=== PATIENT | female | born 1950 | race Caucasian/White ===

== ENCOUNTER 2018-09-03 01:11 | Outpatient (CLI) | payer MEDICARE | END 2018-09-03 23:59 | disposition home or self-care (01) | LOC: DIABETIC 01:11 | PROVIDERS: ATTEND Nurse Practitioner Family | DX: E11.9 Type 2 diabetes mellitus without complications (principal); Z71.3 Dietary counseling and surveillance | CPT/HCPCS: G0108 ==

== ENCOUNTER 2019-02-01 08:53 | Inpatient (IN) | payer MEDICARE ==
[2019-01-25 11:54] LABS: BASOPHILS # (AUTO) 0.1 X10'3 (0-0.2); BASOPHILS % (AUTO) 0.7 % (0-1); EOSINOPHILS # (AUTO) 0.1 X10'3 (0-0.9); LYMPHOCYTES # (AUTO) 1.5 X10'3 (1.1-4.8); LYMPHOCYTES % (AUTO) 16.6 % (21-51); MEAN CORPUSCULAR HEMOGLOBIN 30.7 PG (27.0-31.0); MEAN CORPUSCULAR HGB CONC 33.5 g/dL (33.0-36.5); MEAN CORPUSCULAR VOLUME 91.5 FL (78-98); MEAN PLATELET VOLUME 7.5 FL (7.4-10.4); MONOCYTES # (AUTO) 0.7 X10'3 (0-0.9); MONOCYTES % (AUTO) 8.1 % (2-12); NEUTROPHILS # (AUTO) 6.5 X10'3 (1.8-7.7); NEUTROPHILS % (AUTO) 73.6 % (42-75); PRE OP HEMATOCRIT 44.4 % (35.0-45.0); PRE OP HEMOGLOBIN 14.9 g/dL (12.0-16.0); PRE OP PLATELET COUNT 375 X10'3 (140-440); RED BLOOD COUNT 4.85 X10'6 (4.20-5.60)
[2019-01-25 12:07] LABS: PRE OP PROTIME 9.9 SECONDS (9.0-12.0)
[2019-01-25 12:09] LABS: HEMOGLOBIN A1C 6.6 % (4.5-6.2)
[2019-01-25 12:14] LABS: ALBUMIN 3.5 G/DL (3.4-5.0); ALBUMIN/GLOBULIN RATIO 0.9 (1.1-1.5); ALKALINE PHOSPHATASE 89 IU/L (46-116); BLOOD UREA NITROGEN 13 MG/DL (7-18); BUN/CREATININE RATIO 16.7 (6.6-38.0); CALCIUM 8.9 MG/DL (8.5-10.1); CHLORIDE 97 MMOL/L (99-107); CREATININE 0.78 MG/DL (0.40-0.90); PRE OP ALT 46 U/L (30-65); PRE OP ANION GAP 9 (8-16); PRE OP AST 26 U/L (10-37); PRE OP BILIRUB, TOTAL 0.4 MG/DL (0.0-1.0); PRE OP GLUCOSE 199 MG/DL (70-104); PRE OP SODIUM 136 MMOL/L (135-145); TOTAL CARBON DIOXIDE 30.4 MMOL/L (24-32); TOTAL PROTEIN 7.5 G/DL (6.4-8.2); eGFR 73 ML/MIN
[2019-01-25 12:16] LABS: PRE OP POTASSIUM 3.1 MMOL/L (3.4-5.1)
[2019-02-01] VITALS (20 sets, daily range): BP systolic 118–153; BP diastolic 47–103
[~2019-02-01] VITALS: Ht 167.6 cm; Wt 67.1 kg
[~2019-02-01 08:53] MED LIST: AMIT10TA6 PO; EMPA10TA PO; ESTR2TAB PO; ESTRADIOL PO SCH; FLUO20CA39 PO; HYDR50TA3 PO; HYDROmorphone 1 mg/ml syringe IV PRN; MESSAGE TO PHARMACY PO ONE; PROG200C11 PO; THY60T PO; acetaminophen 325mg tablet PO PRN; bisacodyl 10mg suppository rectal RC PRN; dextrose 50%-water 50ml dispensing syringe IV PRN; dextrose ORAL solution 15 GM/59 ML bottle PO PRN; diphenhydrAMINE 25mg capsule PO PRN; glucagon, human recombinant 1mg kit SUBCUT PRN; insulin Lispro (HumaLOG) vial - multi-dose SQ SCH; magnesium hydroxide 30ml (MOM) UD suspension PO PRN; non-formulary drug (Hydrochlorothiazide 1 TAB) PO SCH; ondansetron/PF 4mg/2ml inj IV PRN; oxyCODONE/APAP 10/325mg tablet PO PRN
[2019-02-01] MEDS ORDERED: ringers solution, lacted 1,000 ML IV SCH ×2 (09:37→10:00)
[2019-02-01] MEDS ORDERED: meperidine/PF 25mg/ml syringe IV PRN ×2 (09:40)
[2019-02-01] MEDS ORDERED: proCHLORperazine 10 MG/2 ml inj IV PRN (09:40)
[2019-02-01] MEDS ORDERED: ondansetron/PF 4mg/2ml inj IV PRN (09:40)
[2019-02-01] MEDS ORDERED: morphine 4 MG/ML inj SYRINge IV PRN ×2 (09:40)
[2019-02-01] MEDS ORDERED: gabapentin 300mg capsule PO ONE (10:00)
[2019-02-01] MEDS ORDERED: metoclopramide 5 mg/ml inj IV ONE (10:00)
[2019-02-01] MEDS ORDERED: celeCOXIB 100mg capsule PO ONE (10:00)
[2019-02-01] MEDS ORDERED: VANCOMYCIN INJ 1000 MG in NORMAL SALINE 250ml IV.SOLN IV ONE (10:00)
[2019-02-01] MEDS ORDERED: cefazolin/dext.iso 2gm/100 ML IV ONE (10:00)
[2019-02-01] MEDS ORDERED: tranexamic acid inj. 1,000 MG in normal saline 100 ML IV ONE (10:00)
[2019-02-01] MEDS ORDERED: oxyCODONE SR 10mg (sust. release) tab -2 tabs (20mg) PO ONE (10:00)
[2019-02-01] MEDS ORDERED: acetaminophen 325mg tablet PO ONE (10:00)
[2019-02-01] MEDS ORDERED: famotidine 20mg tablet PO ONE (10:00)
[2019-02-01] MEDS ORDERED: ketorolac trometh. 30mg/ml inj. ONE ×2 (10:46→10:58)
[2019-02-01] MEDS ORDERED: epiNEPHrine 1 mg/ml inj ONE ×2 (10:46→10:58)
[2019-02-01] MEDS ORDERED: cloNIDine hcl/PF 100mcg/ml inj ONE ×2 (10:47→10:58)
[2019-02-01] MEDS ORDERED: ROPIVAcaine 0.5% (5mg/ml) 30ml vial ONE ×3 (10:47→11:38)
[2019-02-01] MEDS ORDERED: vancomycin 1,000mg inj ONE ×2 (10:47→10:58)
[2019-02-01 10:51] LABS: ISTAT ANION GAP 9 (8-12); ISTAT BUN 12 mg/dL (6-19); ISTAT CL 104 mmol/L (99-107); ISTAT CREATININE 0.6 mg/dL (0.6-1.1); ISTAT GLUCOSE 116 mg/dL (70-104); ISTAT HGB 16.7 g/dl (12.0-16.0); ISTAT Hct 49 %PCV (35-48); ISTAT IONIZED CALCIUM 1.22 mmol/L (1.03-1.32); ISTAT K 4.6 mmol/L (3.5-5.1); ISTAT NA 135 mmol/L (135-145); ISTAT TOTAL CO2 22 mmol/L (24-32); ISTAT eGFR > 90 ML/MIN
[2019-02-01] MEDS ORDERED: ondansetron/PF 4mg/2ml inj ONE (11:32)
[2019-02-01] MEDS ORDERED: LIDOcaine 1%/PF 5ML 10 MG/ML VIAL ONE (11:32)
[2019-02-01] MEDS ORDERED: sevoflurane 250ml liquid IH ONE (11:32)
[2019-02-01] MEDS ORDERED: fentaNYL /PF 50mcg/ml 5ml ampule ONE (11:38)
[2019-02-01] MEDS ORDERED: midazolam 2 mg/2 ml injection ONE (11:38)
[2019-02-01] MEDS ORDERED: propofol inj 20 ML IV ONE (12:01)
--- NOTE | 2019-02-01 13:37 | NUR ---
Received from OR via BED, accompanied by Anesthesiologist DR MONTOYA and report given by Anesthesiologist. PT DROWSY, DENIES PAIN, RIGHT KNEE W/DRSG, KADIE DRAIN, LEG WRAP, ICE PACK CDI, PILLOW UNDER RIGHT ANKLE. Addendum: 02/01/19 at 1426 by Bronwyn Archer RN Amended: Links added.
[2019-02-01] MEDS: meperidine/PF 25mg/ml syringe IV PRN ×2 (13:55→14:12)
[2019-02-01] MEDS ORDERED: ketorolac trometh. 30mg/ml inj. IM ONE (14:45)
[2019-02-01] MEDS ORDERED: acetaminophen 1,000mg/100ml IV 100 ML IV ONE (14:45)
--- NOTE | 2019-02-01 15:17 | NUR ---
Report called to receiving nurse. Transferred via BED, 1 BAG OF PT Belongings SENT W/PT TO ROOM 4012B, RECEIVING RN AT BEDSIDE TO RECEIVE PT, BLL CALL LIGHT GIVEN, SIDE RAILS UP X 2, PTS AT BEDSIDE. Special Issues communicated to receiving nurse. YES. Addendum: 02/01/19 at 1528 by Bronwyn Archer RN Amended: Links added.
[2019-02-01] MEDS: potassium cl 20mEq in 1/2 NS 1,000 ML IV SCH ×3 (16:28→22:49)
[2019-02-01] MEDS: ceFAZolin 1GM/D5W- ADD-VANTAGE 50 ML IV SCH (16:29)
[2019-02-01] MEDS: oxyCODONE/APAP 10/325mg tablet PO PRN ×2 (16:30→20:53)
[2019-02-01] MEDS ORDERED: tranexamic acid inj. 1,000 MG in normal saline 100ml IV soln 100 ML IV ONE (16:45)
--- NOTE | 2019-02-01 19:00 | NUR ---
TRANEXAMIC ACID NOT GIVEN BECAUSE 3HRS WAS PAST ALREADY.
[2019-02-01] MEDS ORDERED: vancomycin/NS 1 GM ADD-VANTAGE 250 ML IV SCH (20:00)
[2019-02-01] MEDS: amitriptyline 10mg tablet PO SCH (20:54)
[2019-02-01] MEDS: ascorbic acid 500mg tablet PO SCH (20:54)
[2019-02-01] MEDS: gabapentin 300mg capsule PO SCH (20:54)
[2019-02-01] MEDS ORDERED: PROGESTERONE MICRONIZED 200 MG PO SCH (21:00)
[2019-02-01] MEDS: sennosides 8.6mg tablet PO SCH (21:00)
[2019-02-01] MEDS ORDERED: progesterone, micronized 100mg capsule PO SCH (21:00)
[2019-02-02] MEDS: ceFAZolin 1GM/D5W- ADD-VANTAGE 50 ML IV SCH (00:16)
[2019-02-02] MEDS: oxyCODONE/APAP 10/325mg tablet PO PRN ×5 (01:46→20:17)
[2019-02-02 02:00] VITALS: BP 114/51
[2019-02-02 05:54] LABS: BASOPHILS % (AUTO) 0.4 % (0-1); EOSINOPHILS % (AUTO) 0 % (0-6); HEMATOCRIT 34.2 % (35.0-45.0); HEMOGLOBIN 11.2 g/dl (12.0-16.0); LYMPHOCYTES # (AUTO) 1.1 X10'3 (1.1-4.8); LYMPHOCYTES % (AUTO) 9.9 % (21-51); MEAN CORPUSCULAR HEMOGLOBIN 30.5 PG (27.0-31.0); MEAN CORPUSCULAR HGB CONC 32.7 g/dL (33.0-36.5); MEAN CORPUSCULAR VOLUME 93.4 FL (78-98); MEAN PLATELET VOLUME 7.4 FL (7.4-10.4); MONOCYTES # (AUTO) 0.9 X10'3 (0-0.9); MONOCYTES % (AUTO) 7.9 % (2-12); NEUTROPHILS # (AUTO) 9.5 X10'3 (1.8-7.7); NEUTROPHILS % (AUTO) 81.8 % (42-75); PLATELET COUNT 323 X10'3 (140-440); RED BLOOD COUNT 3.66 X10'6 (4.20-5.60); RED CELL DISTRIBUTION WIDTH 13.7 % (11.5-14.5); WHITE BLOOD COUNT 11.6 X10'3 (4.5-11.0)
[2019-02-02 06:00] VITALS: BP 111/57
[2019-02-02 06:06] LABS: ANION GAP 11 (8-16); CHLORIDE 105 MMOL/L (99-107); POTASSIUM 4.4 MMOL/L (3.5-5.1); SODIUM 137 MMOL/L (135-145); TOTAL CARBON DIOXIDE 21.3 MMOL/L (24-32)
--- NOTE | 2019-02-02 06:45 | NUR ---
Problems reprioritized. Patient report given, questions answered & plan of care reviewed with SHADE GUILLAUME.
[2019-02-02] MEDS: potassium cl 20mEq in 1/2 NS 1,000 ML IV SCH ×3 (06:49→22:49)
[2019-02-02] MEDS ORDERED: HYDROchlorothiazide 25mg tablet PO SCH (08:00)
[2019-02-02] MEDS ORDERED: estradiol 1mg tablet PO SCH (08:00)
[2019-02-02] MEDS: ascorbic acid 500mg tablet PO SCH ×2 (08:39→20:17)
[2019-02-02] MEDS: HYDROmorphone 1 mg/ml syringe IV PRN ×2 (08:39→23:03)
[2019-02-02] MEDS: gabapentin 300mg capsule PO SCH ×3 (08:40→20:17)
[2019-02-02] MEDS: FLUoxetine 20mg capsule PO SCH (08:40)
[2019-02-02] MEDS: multivitamins, therapeutics tablet PO SCH (08:40)
[2019-02-02] MEDS: aspirin 325mg tablet PO SCH (08:40)
--- NOTE | 2019-02-02 10:50 | NUR ---
Joint replacement consult: Pt/SO seen by LATISHA for written/verbal high protein ed. RD reviewed high protein needs for wound healing, immune strength, high protein foods, and protein supplementation options. RD contact information provided in case of further questions. Pt declines additional proteins at this time. Will continue to monitor. Addendum: 02/02/19 at [address] Amended: Links added.
[2019-02-02] MEDS ORDERED: thyroid, pork 30mg tablet PO SCH (15:25)
[2019-02-02 18:00] VITALS: BP 120/48
--- NOTE | 2019-02-02 18:59 | NUR ---
Problems reprioritized. Patient report given, questions answered & plan of care reviewed with SHADE Genao.
[2019-02-02] MEDS: amitriptyline 10mg tablet PO SCH (20:15)
[2019-02-02] MEDS: sennosides 8.6mg tablet PO SCH (20:15)
[2019-02-02] MEDS: celeCOXIB 100mg capsule PO SCH (20:16)
[2019-02-02] MEDS ORDERED: PROGESTERONE 100 MG PO SCH (21:00)
[2019-02-02] MEDS ORDERED: LIDOcaine 1% (10mg/ml) 2ml vial ONE (21:58)
[2019-02-02 22:00] VITALS: BP 115/49
[2019-02-03] MEDS: oxyCODONE/APAP 10/325mg tablet PO PRN ×2 (04:40→08:29)
[2019-02-03 05:55] LABS: BASOPHILS # (AUTO) 0.1 X10'3 (0-0.2); BASOPHILS % (AUTO) 0.6 % (0-1); EOSINOPHILS # (AUTO) 0.3 X10'3 (0-0.9); EOSINOPHILS % (AUTO) 3.1 % (0-6); HEMATOCRIT 33.7 % (35.0-45.0); HEMOGLOBIN 11.2 g/dl (12.0-16.0); LYMPHOCYTES # (AUTO) 1.8 X10'3 (1.1-4.8); LYMPHOCYTES % (AUTO) 21.8 % (21-51); MEAN CORPUSCULAR HEMOGLOBIN 31.4 PG (27.0-31.0); MEAN CORPUSCULAR HGB CONC 33.2 g/dL (33.0-36.5); MEAN CORPUSCULAR VOLUME 94.6 FL (78-98); MONOCYTES # (AUTO) 0.7 X10'3 (0-0.9); MONOCYTES % (AUTO) 8.3 % (2-12); NEUTROPHILS # (AUTO) 5.5 X10'3 (1.8-7.7); NEUTROPHILS % (AUTO) 66.2 % (42-75); PLATELET COUNT 278 X10'3 (140-440); RED BLOOD COUNT 3.56 X10'6 (4.20-5.60); RED CELL DISTRIBUTION WIDTH 14.3 % (11.5-14.5); WHITE BLOOD COUNT 8.3 X10'3 (4.5-11.0)
[2019-02-03 06:00] VITALS: BP 115/57
--- NOTE | 2019-02-03 06:28 | NUR ---
Problems reprioritized. Patient report given, questions answered & plan of care reviewed with SHADE LOREDO.
[2019-02-03] MEDS: multivitamins, therapeutics tablet PO SCH (08:15)
[2019-02-03] MEDS: gabapentin 300mg capsule PO SCH (08:15)
[2019-02-03] MEDS: celeCOXIB 100mg capsule PO SCH (08:15)
[2019-02-03] MEDS: FLUoxetine 20mg capsule PO SCH (08:15)
[2019-02-03] MEDS: ascorbic acid 500mg tablet PO SCH (08:16)
[2019-02-03] MEDS: aspirin 325mg tablet PO SCH (08:16)
[2019-02-03] MEDS ORDERED: ASPI-1 PO (09:01)
== END 2019-02-03 12:00 | disposition home or self-care (01) | DRG 470 ==
LOC: PAS IN 08:53 → EDSTATUS 12:00 → ORTHO 4S 15:20
PROVIDERS: ADMIT Orthopaedic Surgery; ATTEND Orthopaedic Surgery
PROC: 3E0T3BZ Introduction of Anesthetic Agent into Peripheral Nerves and Plexi, Percutaneous Approach (ICD-10-PCS; 2019-02-01)
PROC: 0SRC069 Replacement of Right Knee Joint with Oxidized Zirconium on Polyethylene Synthetic Substitute, Cemented, Open Approach (ICD-10-PCS; principal; 2019-02-01 11:32)
DX: M17.11 Unilateral primary osteoarthritis, right knee (principal); D62 Acute posthemorrhagic anemia; M87.88 Other osteonecrosis, other site; E03.9 Hypothyroidism, unspecified; E11.9 Type 2 diabetes mellitus without complications; I10 Essential (primary) hypertension; F32.9 Major depressive disorder, single episode, unspecified; Z72.89 Other problems related to lifestyle; Z79.899 Other long term (current) drug therapy
CPT/HCPCS: 36415; 71045; 73560; 80047; 80051; 80053; 82948; 83036; 84443; 85025; 85610; 85730; 86885; 86900; 86901; 87081; 97110; 97116; 97162; 97530; A4215; A6454; A7000; C1713; C1776; G0378; J0131; J0171; J0690; J0735; J1170; J1815; J1885; J2001; J2175; J2250; J2405; J2704; J2765; J2795; J3010; J3370; J3480; J7120; Q0163